=== PATIENT | female | born 1965 | race Caucasian/White ===

== ENCOUNTER 2016-10-25 20:32 | Emergency (ER) | payer BC, MEDICAID ==
[~2016-10-25] VITALS: Ht 154.9 cm; Wt 93.5 kg
[~2016-10-25 20:32] MED LIST: ACYC400T2 PO; GLYB1TAB3 PO; HYDR-1666 PO; LEVO50CA PO; PIOG30TA19 PO; SIMV20TA2 PO; TRIA80OI TP
[2016-10-25 20:37] VITALS: Ht 154.9 cm; Wt 93.5 kg
[2016-10-25] MEDS ORDERED: FLUORESCEIN STRIP BOTH EYES ONE (21:30)
[2016-10-25] MEDS ORDERED: TETRACAINE 0.5% 4 ML OPH BOTH EYES ONE (21:30)
--- NOTE | 2016-10-25 23:43 | RADRPT ---
PROCEDURE: ULTRASOUND OCULAR CLINICAL INDICATION: 51-year-old female with bilateral eye pain. TECHNIQUE: Limited sonographic of the orbits were obtained bilaterally were obtained utilizing gra y scale high-resolution images using a closed eye technique. The images were reviewed on a PACS work station. COMPARISON: None. FINDINGS: The globes are intact bilaterally without evidence for globe rupture. There is no evidence for reti nal detachment. The lens is intact bilaterally. There are mild diffuse scattered internal echoes w ithin the posterior chamber bilaterally consistent with vitreous hemorrhage. IMPRESSION: 1. Mild bilateral vitreous hemorrhage. 2. No sonographic evidence for retinal detachment. .Dennis Servin MD, MD Date Time Electronically viewed and signed by .Dennis Servin MD, on 10/25/2016 23:43 ./
[2016-10-26] MEDS ORDERED: VIGA BOTH EYES (00:14)
[2016-10-26 00:30] VITALS: BP 170/74; PULSE 84; RESP 18; TEMP 98.3
--- NOTE | 2016-10-26 00:50 | ERD ---
ER Documentation Chief Complaint Date/Time DATE: 10/26/16 TIME: 00:42 Chief Complaint right eye pain since this am, "eye crying" HPI This is a 51-year-old female presents to the ER with right eye redness and pain that started this morning. Patient is now complaining of left eye pain and redness that just started about an hour ago. Patient does have bilateral tearing of the eyes with photophobia. She feels as if her eyes are hot. Patient admits to foreign body sensation however denies any foreign bodies in her eyes. She denies flashes of lights, diplopia, loss of vision. Patient normally has blurry vision secondary to cataracts. She denies any nausea or vomiting. She denies any cough or cold symptoms. She denies any itching of her eyes. Patient does admit to pain with movement of her eyes. She denies any eye discharge or eye swelling. ROS 12 point review of systems was done, all negative except per HPI. Medications Home Meds Active Scripts Moxifloxacin Hcl* (Vigamox*) 0.5% - 3 Ml Opht, 1 DROP BOTH EYES TID for 7 Days, EA Prov:GABRIEL STARR 10/26/16 Reported Medications Triamcinolone Acetonide (Triamcinolone Acetonide) 30 Gm Oint..gm., 30 GM TP NEDDED 01/22/12 Pioglitazone Hcl* (Actos*) 30 Mg Tablet, 30 MG PO DAILY 01/22/12 Levothyroxine Sodium (Tirosint) 50 Mcg Capsule, 50 MCG PO DAILY 01/22/12 Simvastatin (Simvastatin) 20 Mg Tablet, 20 MG PO DAILY 01/22/12 Acyclovir* (Acyclovir*) 400 Mg Tablet, 400 MG PO QID 01/22/12 Hydrocodone Bit/Acetaminophen (Vicodin 5/500 Tablet) 1 Tab Tablet, 1 TAB PO QID 01/22/12 Glyburide, Micro-Metformin Hcl (Glucovance) 1 Tab Tablet, 2 TAB PO BID 01/22/12 Allergies Allergies: Uncoded Allergies: NONE (Allergy, Unknown, 10/25/16) PMhx/Soc History of Surgery: Yes (TUBAL LIGATION, BACK) Anesthesia Reaction: No Hx Neurological Disorder: No Hx Respiratory Disorders: No Hx Cardiac Disorders: No Hx Psychiatric Problems: No Hx Miscellaneous Medical Probl: Yes (DIABETES) Hx Alcohol Use: No Hx Substance Use: No Hx Tobacco Use: No Smoking Status: Never smoker Physical Exam Vitals Vital Signs Date Time Temp Pulse Resp B/P Pulse Ox O2 Delivery O2 Flow Rate FiO2 10/26/16 00:30 98.3 84 18 170/74 96 Room Air 10/25/16 20:37 98.3 86 18 184/76 Physical Exam GENERAL: The patient is well developed and appropriate for usual state of health , in no apparent distress. HEENT: Atraumatic. There is no periorbital erythema, warmth, tenderness, bony step-offs or deformity. There is no eyelid erythema crusting or swelling there is no enophthalmos or exophthalmos. PEERL, there are small cataracts bilaterally. conjunctiva is injected bilaterally. CHEST: Clear to auscultation bilaterally. There are no rales, wheezes or rhonchi. HEART: Regular rate and rhythm. No murmurs, clicks, rubs or gallops. NEURO: Alert and oriented. Cranial nerves II through XII are intact. Motor strength in all 4 extremities with 5/5 strength. Sensation grossly intact. Normal speech and gait. SKIN: There is no apparent rash or petechia. The skin is warm and dry. Results 24 hrs Current Medications Medications (Trade) Dose Ordered Sig/Pradeep Route PRN Reason Start Time Stop Time Status Last Admin Dose Admin Fluorescein Sodium ([id number]) 1 strip ONCE ONCE BOTH EYES 10/25/16 21:30 10/25/16 21:31 DC Tetracaine HCl (Tetracaine 0.5% Steri-Unit Claudia) 1 drop ONCE ONCE BOTH EYES 10/25/16 21:30 10/25/16 21:31 DC Procedures/MDM I was examined with fluorescein stain was no evidence of corneal abrasion or ulcer. No dendritic lesions. No foreign bodies seen. Subconjunctival hemorrhage, bacterial conjunctivitis, viral conjunctivitis, allergic conjunctivitis,orbital cellulitis, hyphema, corneal abraion, keratitis , uveitis, angle-closure glaucoma, retinal detachment, ruptured globe, retrobulbar hematoma. I discussed his case with my supervising physician Dr. Mitchell and he agrees with my medical decision-making. Patient was found to have bilateral vitreous hemorrhages, however this is likely chronic in nature. Patient does have diabetes and cataracts, because of these findings. Patient urgently needs to follow-up with an [place] she was given information for at [facility]. Patient will be sent home with Vigamox. She is to follow-up with [place] tomorrow and with PCP within 1-2 days or return to ER sooner if symptoms worsen. My medical decision making was shared with the patient she understands and agrees with plan. Departure Diagnosis: Primary Impression: Vitreous hemorrhage Condition: Stable Patient Instructions: Diabetic Retinopathy: Evaluating Your Eyes Referrals: [facility] Hours: Mon - Wed 9:00 AM - 5:00 PM Additional Instructions: Specialist:Usted tiene mouna condicin mdica que requiere que cata a un especialista dentro de los prximos 1-2 brizuela.POR FAVOR,CON METZGER SEGUIMIENTO DE PRIMARIA PHSICIAN refferal. SI USTED NO TIENE UN MDICO GENERAL Y / O USTED NO PUEDE PAGAR marti a un mdico,los siguientes leiva RECURSOS sido suministrado a usted. ES METZGER RESPONSABILIDAD PARA SER VISTOS POR EL ESPECIALISTA: TIENE QUE IR A UN OPTHALMOLOGO LO MAS PRONTO POSIBLE GABRIEL STARR Oct 26, 2016 00:50
== END 2016-10-26 00:19 | disposition home or self-care (01) ==
LOC: FTE 20:32
DX: H43.11 Vitreous hemorrhage, right eye (principal); E11.9 Type 2 diabetes mellitus without complications; Z79.84 Long term (current) use of oral hypoglycemic drugs
CPT/HCPCS: 76536; Z7502; Z7610

== ENCOUNTER 2017-02-03 04:25 | Emergency (ER) | payer BC ==
[~2017-02-03] VITALS: Ht 162.6 cm; Wt 91.0 kg
[~2017-02-03 04:25] MED LIST changes: +VIGA BOTH EYES
[2017-02-03 04:27] VITALS: Ht 162.6 cm; Wt 91.0 kg
[2017-02-03] MEDS ORDERED: GABA300C16 PO (05:24)
--- NOTE | 2017-02-03 05:51 | ERD ---
ER Documentation Chief Complaint Date/Time DATE: 02/03/17 TIME: 05:48 Chief Complaint right leg burning sensations since 2 hours ago , denies injury HPI 51-year-old female presents here in emergency department for complaints of a burning sensation on the right lower leg that started while sleeping tonight. Patient denies any redness or swelling. Patient denies any fever or chills. Patient denies any pain. Patient is diabetic. ROS All systems reviewed and are negative except as per history of present illness. Medications Home Meds Active Scripts Gabapentin* (Gabapentin*) 300 Mg Capsule, 300 MG PO BID, #60 CAP Prov:PRIYA ADAMS SOCIAL WORK PROGRAM COORDINATOR 02/03/17 Moxifloxacin Hcl* (Vigamox*) 0.5% - 3 Ml Opht, 1 DROP BOTH EYES TID for 7 Days, EA Prov:GABRIEL STARR 10/26/16 Reported Medications Triamcinolone Acetonide (Triamcinolone Acetonide) 30 Gm Oint..gm., 30 GM TP NEDDED 01/22/12 Pioglitazone Hcl* (Actos*) 30 Mg Tablet, 30 MG PO DAILY 01/22/12 Levothyroxine Sodium (Tirosint) 50 Mcg Capsule, 50 MCG PO DAILY 01/22/12 Simvastatin (Simvastatin) 20 Mg Tablet, 20 MG PO DAILY 01/22/12 Acyclovir* (Acyclovir*) 400 Mg Tablet, 400 MG PO QID 01/22/12 Hydrocodone Bit/Acetaminophen (Vicodin 5/500 Tablet) 1 Tab Tablet, 1 TAB PO QID 01/22/12 Glyburide, Micro-Metformin Hcl (Glucovance) 1 Tab Tablet, 2 TAB PO BID 01/22/12 Allergies Allergies: Coded Allergies: No Known Allergy (Unverified , 02/03/17) PMhx/Soc History of Surgery: Yes (Tubal Ligation,Back Surgery,R Eye Cataract Surg) Anesthesia Reaction: No Hx Neurological Disorder: No Hx Respiratory Disorders: No Hx Cardiac Disorders: No Hx Psychiatric Problems: Yes (Depression,Insomnia) Hx Miscellaneous Medical Probl: Yes (DM,Hypothyroidism) Hx Alcohol Use: No Hx Substance Use: No Hx Tobacco Use: No Physical Exam Vitals Vital Signs Date Time Temp Pulse Resp B/P Pulse Ox O2 Delivery O2 Flow Rate FiO2 02/03/17 04:27 98.2 66 20 160/77 100 Physical Exam GENERAL: The patient is well developed and appropriate for usual state of health, in no apparent distress. CHEST: Clear to auscultation bilaterally. There are no rales, wheezes or rhonchi. HEART: Regular rate and rhythm. No murmurs, clicks, rubs or gallops. No S3 or S4. ABDOMEN: Soft, nontender and nondistended. Good bowel sounds. No rebound or guarding. No gross peritonitis. No gross organomegaly or masses. No Dalal sign or McBurney point tenderness. BACK: No midline or flank tenderness. EXTREMITIES: Equal pulses bilaterally. There is no peripheral clubbing, cyanosis or edema. No focal swelling or erythema. Full range of motion. Grossly neurovascularly intact. NEURO: Alert and oriented. Cranial nerves 2-12 intact. Motor strength in all 4 extremities with 5/5 strength. Sensation grossly intact. Normal speech and gait. SKIN: There is no apparent rash or petechia. The skin is warm and dry. HEMATOLOGIC AND LYMPHATIC: There is no evidence of excessive bruising or lymphedema. No gross cervical, axillary, or inguinal lymphadenopathy. Procedures/MDM Medical decision making: Pt symptoms most likely consistent with diabetic peripheral neuropathy. No symptoms of any infection, no redness, swelling, no symptoms of any DVT. No symptoms of any cellulitis. Patient did not have any trauma in the back. Low suspicion for any cauda equina syndrome. No suspicion for any neurologic or neurovascular emergencies at this time. Patient was given for gabapentin, is advised to follow-up with primary care doctor in 2-3 days for reevaluation of symptoms. Patient was advised to return to emergency department for any worsening symptoms. Dispostion: Home. Stable Departure Diagnosis: Primary Impression: Diabetic peripheral neuropathy Condition: Stable Patient Instructions: What Is Peripheral Neuropathy? PRIYA ADAMS NP Feb 03, 2017 05:51
== END 2017-02-03 05:51 | disposition home or self-care (01) ==
LOC: FTE 04:25
DX: E11.40 Type 2 diabetes mellitus with diabetic neuropathy, unspecified (principal); E03.9 Hypothyroidism, unspecified; Z79.84 Long term (current) use of oral hypoglycemic drugs
CPT/HCPCS: 99283

== ENCOUNTER 2017-07-12 02:52 | Emergency (ER) | END 2017-07-12 03:28 | disposition left against medical advice (07) ==

== ENCOUNTER 2018-05-31 01:28 | Emergency (ER) | payer BC ==
[~2018-05-31] VITALS: Ht 154.9 cm; Wt 91.3 kg
[~2018-05-31 01:28] MED LIST changes: +GABA300C16 PO
[2018-05-31 01:31] VITALS: Ht 154.9 cm; Wt 91.3 kg
[2018-05-31] MEDS ORDERED: NITR-58 PO (06:04)
[2018-05-31] MEDS ORDERED: PHEN-538 PO (06:04)
[2018-05-31] MEDS ORDERED: ONDA4TAB14 PO (06:11)
[2018-05-31 06:16] VITALS: BP 160/80; PULSE 80; RESP 18
--- NOTE | 2018-05-31 07:11 | ERD ---
ER Documentation Chief Complaint Chief Complaint PAIN IN URINATION XTODAY HPI 52yo female presents for painful urination x1 day. She says there is some blood with urination. The pain is described as a burning pain, rated 6/10 with urination. Denies fever, CP, SOB, abdominal pain, nausea or vomiting. ROS All systems reviewed and are negative except as per history of present illness. Medications Home Meds Active Scripts Ondansetron (Ondansetron Odt) 4 Mg Tab.rapdis, 4 MG PO Q6H PRN for NAUSEA AND/OR VOMITING, #10 TAB Prov:ANDREA LUGO 05/31/18 Phenazopyridine Hcl* (Pyridium*) 200 Mg Tab, 200 MG PO TID PRN for URINARY PAIN for 2 Days, #6 TAB Prov:ANDREA LUGO 05/31/18 Nitrofurantoin Monohyd Macrocr* (Macrobid*) 100 Mg Capsr, 100 MG PO BID for uti for 5 Days, #10 CAP Prov:PARISHANDREA 05/31/18 Gabapentin* (Gabapentin*) 300 Mg Capsule, 300 MG PO BID, #60 CAP Prov:PRIYA ADAMS EXTRACTIONS TECHNOLOGIST 02/03/17 Moxifloxacin Hcl* (Vigamox*) 0.5% - 3 Ml Opht, 1 DROP BOTH EYES TID for 7 Days, EA Prov:GABRIEL STARR 10/26/16 Reported Medications Triamcinolone Acetonide (Triamcinolone Acetonide) 30 Gm Oint..gm., 30 GM TP NEDDED 01/22/12 Pioglitazone Hcl* (Actos*) 30 Mg Tablet, 30 MG PO DAILY 01/22/12 Levothyroxine Sodium (Tirosint) 50 Mcg Capsule, 50 MCG PO DAILY 01/22/12 Simvastatin (Simvastatin) 20 Mg Tablet, 20 MG PO DAILY 01/22/12 Acyclovir* (Acyclovir*) 400 Mg Tablet, 400 MG PO QID 01/22/12 Hydrocodone Bit/Acetaminophen (Vicodin 5/500 Tablet) 1 Tab Tablet, 1 TAB PO QID 01/22/12 Glyburide, Micro-Metformin Hcl (Glucovance) 1 Tab Tablet, 2 TAB PO BID 01/22/12 Allergies Allergies: Coded Allergies: No Known Allergy (Unverified , 02/03/17) PMhx/Soc History of Surgery: Yes (Tubal Ligation,Back Surgery,R Eye Cataract Surg) Anesthesia Reaction: No Hx Neurological Disorder: No Hx Respiratory Disorders: No Hx Cardiac Disorders: No Hx Psychiatric Problems: Yes (Depression,Insomnia) Hx Miscellaneous Medical Probl: Yes (DM,Hypothyroidism) Hx Alcohol Use: No Hx Substance Use: No Hx Tobacco Use: No Smoking Status: Never smoker Physical Exam Vitals Vital Signs Date Temp Pulse Resp B/P (MAP) Pulse Ox O2 O2 Flow FiO2 Time Delivery Rate 05/31/18 98.0 80 18 160/80 98 Room Air 06:16 (106) 05/31/18 97.6 69 18 180/79 100 01:31 (112) Physical Exam Const: No acute distress Resp: Clear to auscultation bilaterally Cardio: Regular rate and rhythm, no murmurs Abd: Soft, non tender, non distended. Normal bowel sounds Skin: No petechiae or rashes Back: No midline or flank tenderness Ext: No cyanosis, or edema Neur: Awake and alert Psych: Normal Mood and Affect Results 24 hrs Laboratory Tests Test 05/31/18 04:20 Urine Color RED Urine Clarity CLOUDY Urine pH 8.0 Urine Specific [place] 1.013 Urine Ketones NEGATIVE mg/dL Urine Nitrite NEGATIVE mg/dL Urine Bilirubin NEGATIVE mg/dL Urine Urobilinogen NEGATIVE mg/dL Urine Leukocyte Esterase 2+ Zane/ul Urine Microscopic RBC > 182 /HPF Urine Microscopic WBC 175 /HPF Urine Bacteria FEW /HPF Urine Hemoglobin 3+ mg/dL Urine Glucose 3+ mg/dL Urine Total Protein 2+ mg/dl Procedures/MDM Medical Decision Making: Differential diagnosis includes but not limited to UTI, bladder cancer, v aginitis Patient appeared well on physical exam. Vitals signs reviewed by me, showed elevated blood pressure. Patient however is asymptomatic and advised to repeat blood pressure with her PCP. UA showed elevated WBC and RBC consistent with a UTI Patient likely has a UTI Given patient's age, she was advised to follow up with urology outpatient to rule out bladder cancer, she agrees with plan. Prescription(s): Patient given prescription for macrobid, pyridium and zofran. Patient advised to follow up with PCP in 1-2 days. Patient advised to return to ED for new or worsening symptoms. Patient stable on discharge from the ED. Disclaimer: Inadvertent spelling and grammatical errors are likely due to EHR/dictation software use and do not reflect on the overall quality of patient care. Also, please note that the electronic time recorded on this note does not necessarily reflect the actual time of the patient encounter. Departure Diagnosis: Primary Impression: Hematuria Additional Impression: UTI (urinary tract infection) Patient Instructions: Understanding Urinary Tract Infections (UTIs), Hematuria Additional Instructions: Call your primary care doctor TOMORROW for an appointment during the next 1-2 days.See the doctor sooner or return here if your condition worsens before your appointment time. Follow up with PCP, may need referral to urology. ANDREA LUGO DO May 31, 2018 07:11
== END 2018-05-31 06:18 | disposition home or self-care (01) ==
LOC: FTE 01:28
DX: N39.0 Urinary tract infection, site not specified (principal); E11.9 Type 2 diabetes mellitus without complications; E03.9 Hypothyroidism, unspecified; Z79.84 Long term (current) use of oral hypoglycemic drugs
CPT/HCPCS: 76830; 76856; 81001; Z7502